=== PATIENT | male | born 1995 ===

== ENCOUNTER 2017-07-01 17:47 | Inpatient (IN) | payer BC ==
[2017-07-01] MEDS ORDERED: MAGNESIUM HYDROXIDE 2,400 MG/10 ML CUP PO PRN (19:10)
[2017-07-01] MEDS ORDERED: ZIPRASIDONE 20 MG VIAL IM PRN (19:10)
[2017-07-01] MEDS ORDERED: MAG HYDROX/AL HYDROX/SIMETH 30 ML CUP PO PRN (19:10)
[2017-07-01] MEDS ORDERED: LORazepam 1 MG TAB PO PRN (19:10)
[2017-07-01] MEDS ORDERED: ACETAMINOPHEN TAB 325 MG TAB PO PRN (19:10)
[2017-07-01 19:37] VITALS: BMI 23.1
--- NOTE | 2017-07-01 22:31 | P.MDCNMH ---
History of Present Illness H&P Date: 07/01/17 Chief Complaint: medical management 22 year old male with no significant past medical history, except for positive psych history. Transferred from a different facility due to unavailability of mental health unit. He presented with symptoms suggestive of acute psychosis with reported auditory hallucinations and homicidal ideations per the accompanying report. Patient refused to talk about any of this. He denies any physical complaint or medical concerns at this time. patient avoids eye contact during the interview Review of Systems Constitutional: Patient denies fever, denies chills, denies night sweating, denies significant weight changes Eyes: Patient denies visual changes, denies eye pain ENT: Patient denies ear pain, denies rhinorrhea, denies sore throat Cardiovascular: Patient denies chest pain, denies exertional dyspnea, denies peripheral leg edema, denies orthopnea, denies paroxysmal nocturnal dyspnea Respiratory:Patient denies cough, denies wheezing, denies shortness of breath Gastrointestinal: Patient denies diarrhea, denies constipation, denies nausea , denies vomiting, denies abdominal pain Genitourinary: Patient denies dysuria, denies hematuria, denies changes in urinary habits, denies genital lesions Musculoskeletal: Patient denies muscle pain, denies joint pain Psychiatric: Patient reports anxiety, auditory hallucination, denies homicidal ideation or suicidal ideation at this time Endocrine: Patient denies heat intolerance, denies cold intolerance, denies excessive thirst, denies polyuria Neurological: Patient denies focal neurologic deficits, denies weakness, denies numbness, denies tingling Hem/Lymphatic: Patient denies bleeding tendency, denies bruising, denies swollen lymph glands Allergic/Immun: Patient denies recent allergic reactions Skin: Patient denies rashes, denies pruritis, denies ulcers Past Medical History Past Medical History: No Reported History History of Any Multi-Drug Resistant Organisms: None Reported Past Surgical History: Appendectomy Additional Past Surgical History / Comment(s): March. Additional Past Anesthesia/Blood Transfusion Reaction / Comment(s): PT WAS DELUSIONAL WHEN HE CAME OUT OF [facility] Past Psychological History: No Psychological Hx Reported Smoking Status: Never smoker Past Alcohol Use History: None Reported Past Drug Use History: None Reported - Past Family History Mother Additional Family Medical History / Comment(s): NONE Father Family Medical History: Coronary Artery Disease (CAD) Medications and Allergies Home Medications and Allergies Comment(s): claims that he continues to take his medication as prescribed Home Medications Medication Instructions Recorded Confirmed Type risperiDONE [risperiDONE] 0.25 mg PO HS 07/01/17 07/01/17 History Allergies Allergy/AdvReac Type Severity Reaction Status Date / Time bee venom protein (honey bee) Allergy Swelling Verified 07/01/17 19:09 Physical Exam Vitals: Vital Signs Temp Pulse Resp BP 07/01/17 19:28 97.6 F 70 16 124/68 Intake and Output 07/01/17 07/01/17 07/01/17 06:59 14:59 22:59 Other: Weight 81.647 kg Constitutional: No acute distress, conversant, pleasant Eyes: Anicteric sclerae, moist conjunctiva, no lid-lag Pupils equal round reactive to light ENMT: NC/AT Oropharynx clear, no erythema, exudates Neck: Supple, FROM, no masses, or JVD No carotid bruits No thyromegaly Lungs: Clear to auscultation Clear to percussion Normal respiratory effort, no accessory muscle use Cardiovascular: Heart regular in rate and rhythm, No murmurs, gallops, or rubs No peripheral edema Abdominal: Soft Nontender, no guarding, rebound or rigidity Abdomen moving with respiration Normoactive bowel sounds No hepatomegaly, No splenomegaly No palpable mass No abdominal wall hernia noted Skin: Normal temperature, tone, texture, turgor No induration No subcutaneous nodules No rash, lesions No ulcers Extremities: No digital cyanosis No clubbing Pedal pulses intact and symmetrical Radial pulses intact and symmetrical No calf tenderness Psychiatric: Alert and oriented to person, place and time Flat affect Poor judgment Neuro Muscles Strength 5/5 in all 4 extremities Sensation to light touch grossly present throughout No focal sensory deficits Lymphatics: no palpable cervical or supraclavicular , or inguinal lymph nodes Cranial Nerve Examination - Cranial Nerves Cranial Nerve II- Optic: Intact Cranial Nerve III- Oculomotor: Intact Cranial Nerve IV- Trochlear: Intact Cranial Nerve V- Trigeminal: Intact Cranial Nerve - Abducens: Intact Cranial Nerve VII- Facial: Intact Cranial Nerve VIII- Auditory: Intact Cranial Nerve IX- Glossopharyngeal: Intact Cranial Nerve X- Vagus: Intact Cranial Nerve XI- Accessory: Intact Cranial Nerve XII- Hypoglossal: Intact Results Results: Patient labs from the other facility was reviewed in paper form was unremarkable except for a white count of 3.8 Assessment and Plan (1) Acute psychosis Narrative/Plan: Management per psych Current Visit: Yes Status: Acute Code(s): F23 - BRIEF PSYCHOTIC DISORDER SNOMED Code(s): 50447494 Plan: Low risk for DVT patient is ambulatory Thank you for allowing us to participate in the care of this patient. We will follow peripherally. Do not hesitate to contact us with questions. Someone can be reached from the [facility] hospitalist group at all hours of the day at [phone].
[2017-07-02 08:42] LABS: ALT 16 U/L (21-72); AST 12 U/L (17-59); Albumin 4.2 g/dL (3.5-5.0); Alkaline Phosphatase 60 U/L (38-126); Anion Gap 8 mmol/L; Blood Urea Nitrogen 15 mg/dL (9-20); Calcium 9.7 mg/dL (8.4-10.2); Carbon Dioxide 30 mmol/L (22-30); Chloride 106 mmol/L (98-107); Cholesterol 137 mg/dL (<200); Glucose 95 mg/dL (74-99); HDL Cholesterol 44 mg/dL (40-60); LDL Cholesterol,Calculated 82 mg/dL (0-99); Potassium 4.3 mmol/L (3.5-5.1); Sodium 144 mmol/L (137-145); Total Bilirubin 0.9 mg/dL (0.2-1.3); Triglycerides 57 mg/dL (<150)
--- NOTE | 2017-07-02 09:54 | P.HP ---
Psychiatric H&P - . H&P Date: 07/02/17 History & Physical: Allergies Allergy/AdvReac Type Severity Reaction Status Date / Time bee venom protein (honey bee) Allergy Swelling Verified 07/01/17 19:09 Vital Signs Temp 98.6 F 07/02/17 06:28 Pulse 86 07/02/17 06:28 Resp 14 07/02/17 06:28 BP 119/72 07/02/17 06:28 Pulse Ox Intake & Output 07/01/17 07/02/17 07/02/17 18:59 06:59 18:59 Weight 81.647 kg 81.647 kg Laboratory Last Values Sodium 144 mmol/L (137-145) 07/02/17 08:01 Potassium 4.3 mmol/L (3.5-5.1) 07/02/17 08:01 Chloride 106 mmol/L (98-107) 07/02/17 08:01 Carbon Dioxide 30 mmol/L (22-30) 07/02/17 08:01 Anion Gap 8 mmol/L 07/02/17 08:01 BUN 15 mg/dL (9-20) 07/02/17 08:01 Creatinine 1.04 mg/dL (0.66-1.25) 07/02/17 08:01 Est GFR (CKD-EPI)AfAm >90 (>60 ml/min/1.73 sqM) 07/02/17 08:01 Est GFR (CKD-EPI)NonAf >90 (>60 ml/min/1.73 sqM) 07/02/17 08:01 Glucose 95 mg/dL (74-99) 07/02/17 08:01 Calcium 9.7 mg/dL (8.4-10.2) 07/02/17 08:01 Total Bilirubin 0.9 mg/dL (0.2-1.3) 07/02/17 08:01 AST 12 U/L (17-59) L 07/02/17 08:01 ALT 16 U/L (21-72) L 07/02/17 08:01 Alkaline Phosphatase 60 U/L (38-126) 07/02/17 08:01 Total Protein 7.0 g/dL (6.3-8.2) 07/02/17 08:01 Albumin 4.2 g/dL (3.5-5.0) 07/02/17 08:01 Triglycerides 57 mg/dL (<150) 07/02/17 08:01 Cholesterol 137 mg/dL (<200) 07/02/17 08:01 LDL Cholesterol, Calc 82 mg/dL (0-99) 07/02/17 08:01 HDL Cholesterol 44 mg/dL (40-60) 07/02/17 08:01 TSH 1.730 mIU/L (0.465-4.680) 07/02/17 08:01 07/02/17 09:32 Identification: Oliver Connelly is 89 years old single white male living in [facility]. He was admitted to [facility] on [address] [facility] since he was considered to be hallucinating. History of present illness: Patient said his psychiatrist felt he needed to be in a hospital and so he was admitted to [facility]. It is not clear as to why he was transferred from there to here. Patient said his doctor felt he is in danger to self or others. He said he has been hearing voices and seeing occasional visions for a very long time probably since he was around 11 years old. Apparently it got worse after he had surgery for appendectomy on 2016. The voices he is describing are basically his own thoughts and not real auditory hallucinations. He said sometimes he sees animals like they are in the movies. He reported voices and visions are experienced more often when he is tired about to fall asleep or when he is waking up. He denies any other psychiatric issues to consider psychotic condition. He said his mood goes up and down lasting for at the most couple of hours once in a while. He also reports of getting nervous if he is surrounded by a lot of people, in the mall, in closed spaces like elevator and feels very uncomfortable and has to get out of those places. He said he had thoughts of suicide and homicide in the past but he does not have them anymore. Previous psychiatric history/drug and alcohol abuse: He saw the psychiatrist first time in April of this year who had prescribed him risperidone 1 mg a day. Apparently this made him restless and hyperactive so it was decreased to 0.5 mg a day. He was not in psychiatric hospitals in the past. He denies abusing drugs and alcohol. Previous medical history: He is ALLERGIC to bee stings. He had appendectomy in March 2017. He denies any other physical problems. Social history: He is a sophomore in college and is studying graphic arts and design on a part-time basis his GPA is 3.1. He did not have any issues with learning or discipline. He played baseball for 3 years here and there. He played percussion instruments and keyboards in the band for 4 years in high school. He did not fit in the crowd, was shy and minded his own business. He also did not like to ask questions since he did not want other people to think he is dumb. He was raised well by his parents and was not abused. 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 He was not raised in any sabianist. He is not sure if he believes in God or not. He lives with his parents and has Blue Cross and Blue Shield health insurance. He was not in the service. He is heterosexual and does not have a girlfriend. He does not have any children. He denies any pending legal issues. Family history: His dad apparently has poor circulation in his legs. Mental status examination: This is a white ambulatory male with adequate hygiene. He is polite and cooperative. He does not show any psychomotor agitation or retardation. He did not make any eye contact until almost at the end of the examination. His speech is unspontaneous, often has to think before he answers. But, it is goal directed. His mood is anxious and affect is appropriate to the thought content. He denies suicidal and homicidal ideas. He reports of auditory and visual hallucinations but these do not appear to be actual hallucinations since he does not have any objective signs of psychosis. He denies delusional thinking. His insight is fair and judgment is fairly appropriate. He is well oriented with good memory. He is able to recall 3 out of 3 items after 5 minutes. He named the last 4 presidents as "Hill Christopher, Gricelda Obskyler, Baron Baxter, Barno Baxter Senior". He is able to spell house both forwards and backwards correctly. He is able to say without any difficulty that 8+7 is 15 and 87 is 56. Diagnostic impression: Social anxiety disorder F 44.10 Unspecified personality disorder F 60 point ALLERGY to bee stings. Treatment plan: Patient already had his physical examination. He will receive milieu therapy group therapy individual therapy occupational therapy recreational therapy and medication education. Since he is not considered a risk for suicide or homicide he will not be closely observed/ supervised. His condition was discussed with him along with proposed treatment including exposure therapy. It was also agreed for him to try Seroquel 25 mg at bedtime to help him sleep better and also for anxiety. Adjust the dose as necessary. Discharge with outpatient follow-up. Treatment goals: He will continue to be free of suicide and homicide thoughts. He will learn better coping skills. He will not be bothered by anxiety symptoms. Estimated length of stay: 3-5 days.
[2017-07-02 19:43] LABS: Hemoglobin A1C 4.9 % (4.0-6.0)
[2017-07-02] MEDS ORDERED: QUEtiapine 25 MG TAB PO SCH (21:00)
[2017-07-03 06:53] VITALS: BP 108/63; PULSE 73; RESP 16; TEMP 97.9
--- NOTE | 2017-07-03 09:33 | P.DS ---
Providers Date of admission: 07/01/17 18:50 Attending physician: Katlyn Soliz Consults: 07/01/17 19:10 Consult Physician Routine Consulting Provider: Alea Forrester Consult Reason/Comments: H and P Do you want consulting provider notified?: Yes Primary care physician: Stated None Hospital Course: Patient had his physical examination and psychosocial evaluation besides psychiatric examination. After psychiatric examination he was started on 25 mg of Seroquel at bedtime for anxiety and insomnia. He did not have any adverse effects from Seroquel. He slept well last night. He attended his therapies and socializes to some extent with his peers. He interacted with staff without any difficulty. His parents were here yesterday and they said they could not understand why the patient was sent here and they wanted to take him home yesterday. But since he had just come here and he was started on medication it was agreed to keep him at least for a day to monitor. Since he did not tell up any adverse effects slept well last night it was agreed to discharge him. Condition on discharge: This is a white ambulatory male with adequate hygiene. He is poorly combed. He does not show any psychomotor agitation or retardation. His speech is spontaneous relevant and goal-directed. His mood is mildly anxious and affect is appropriate. He denies suicidal and homicidal ideas. He also denies hallucinations and delusional thinking. His insight and judgment are adequate. He is well oriented with good memory concentration general fund of knowledge etc. Diagnosis on discharge: Social anxiety disorder F 44.10 Unspecified personality disorder F 60.9 ALLERGY to bee stings. Patient was advised and agreed to take his medication as prescribed, not to drive or operate machinery if he feels sleepy not to drink alcohol or use drugs , learn better coping skills through therapy including behavior therapy and to call his doctor if he gets suicidal thoughts and if he cannot get hold of the doctor to go to the nearest ER. Patient Condition at Discharge: Good Plan - Discharge Summary Discharge Rx Participant: No New Discharge Prescriptions: New QUEtiapine [SEROquel] 25 mg PO HS 30 Days #30 tab Discontinued risperiDONE [risperiDONE] 0.25 mg PO HS Discharge Medication List QUEtiapine [SEROquel] 25 mg PO HS 30 Days #30 tab 07/03/17 [Rx] Follow up Appointment(s)/Referral(s): Psychologican,List [Other] - 07/07/17 3:00 pm ([facility]icio Coffman [facility] [place], [place] Please arrive at 2:15 for paperwork) Patient Instructions/Handouts: Generalized Anxiety Disorder (DC) Activity/Diet/Wound Care/Special Instructions: No alcohol or street drugs, activity as tolerated, diet as tolerated, remove firearms from home. Call 911 or crisis line if having thoughts or hurting yourself or anyone else. Follow up with with outpatient provider as set up at time of discharge.
== END 2017-07-03 10:51 | disposition home or self-care (01) | DRG 882 ==
LOC: 3MHU 18:50
PROVIDERS: ADMIT Psychiatry & Neurology Psychiatry; ATTEND Psychiatry & Neurology Psychiatry
DX: F40.10 Social phobia, unspecified (principal); F60.9 Personality disorder, unspecified; G47.00 Insomnia, unspecified; Z91.030 Bee allergy status; Z79.899 Other long term (current) drug therapy; Z90.49 Acquired absence of other specified parts of digestive tract; Z82.49 Family history of ischemic heart disease and other diseases of the circulatory system
CPT/HCPCS: 80053; 80061; 83036; 84443